=== PATIENT | female | born 1995 | race Two or more races ===

== ENCOUNTER 2017-12-16 21:05 | Emergency (ER) | payer MEDICAID ==
--- NOTE | 2017-12-16 21:28 | Emergency Department Record ---
History of Present Illness - General Chief complaint: ENT Stated complaint: SINUS CONGESTION,FEVER,HEADACHE Time Seen by Provider: 12/16/17 21:08 Source: Patient Mode of Arrival: Ambulatory Limitations: No limitations - History of Present Illness Initial comments: 22 yo female presents to ED for evaluation for evaluation of nasal congestion/ runny nose, sore throat symptoms, and non-productive cough symptoms. Patient reports fever of 100.4 at home, denies health problems at her baseline other than asthma. MD complaint: Sore throat Onset/Timin -: Days(s) Location: Throat Severity: Moderate Consistency: Constant Improves with: None Worsens with: None Associated Symptoms: Cough, Fever, Sore throat - Related Data Home Medications Medication Instructions Recorded Confirmed Last Taken No Home Med [NO HOME MEDS] 12/16/17 12/16/17 Unknown Allergies Allergy/AdvReac Type Severity Reaction Status Date / Time No Known Drug Allergies Allergy Verified 08/12/14 15:38 Review of Systems Constitutional: Reports: Fever. Denies: Chills, Malaise, Night sweats Eyes: Denies: Eye discharge, Eye pain ENT: Reports: Congestion, Throat pain. Denies: Ear pain, Epistaxis Respiratory: Reports: Cough Cardiovascular: Denies: Chest pain, Dyspnea on exertion, Edema, Palpitations Endocrine: Denies: Fatigue, Heat or cold intolerance Gastrointestinal: Denies: Abdominal pain, Nausea, Vomiting Genitourinary: Denies: Incontinence, Retention Musculoskeletal: Denies: Arthralgia, Back pain Skin: Denies: Bruising, Change in color Neurological: Denies: Abnormal gait, Confusion, Headache, Seizure Psychiatric: Denies: Anxiety Hematological/Lymphatic: Denies: Anemia, Blood Clots Past Medical History - SOCIAL HISTORY Smoking Status: Never smoker - RESPIRATORY Hx Asthma: Yes - CARDIOVASCULAR Hx Cardio Disorders: No - NEURO Hx Neuro Disorders: No - GI Hx GI Disorders: No - Hx Genitourinary Disorders: No - ENDOCRINE Hx Endocrine Disorders: No - MUSCULOSKELETAL Hx Musculoskeletal Disorders: No - PSYCH Hx Behavior Problems: Yes Hx Depression: Yes (bi-polar) - HEMATOLOGY/ONCOLOGY Hx Anemia: Yes Family Medical History Hx Cancer: Father, Mother, Grandparents Physical Exam - General General Appearance: Alert, Oriented x3, Cooperative, Mild distress Limitations: No limitations - Head Head exam: Atraumatic, Normocephalic, Normal inspection Head exam detail: negative: Abrasion, Contusion, Dang's sign, General tenderness, Hematoma, Laceration - Eye Eye exam: Normal appearance. negative: Conjunctival injection, Periorbital swelling, Periorbital tenderness, Scleral icterus - ENT Ear exam: negative: Auricular hematoma, Auricular trauma Nasal Exam: Discharge. negative: Active bleeding, Dried blood, Foreign body Mouth exam: negative: Drooling, Laceration, Muffled voice, Tongue elevation Throat exam: Tonsillar erythema. negative: Tonsillomegaly, R peritonsillar mass , L peritonsillar mass - Neck Neck exam: Normal inspection. negative: Meningismus, Tenderness - Respiratory Respiratory exam: Normal lung sounds bilaterally. negative: Rales, Respiratory distress, Rhonchi, Stridor - Cardiovascular Cardiovascular Exam: Regular rate, Normal rhythm, Normal heart sounds - GI/Abdominal GI/Abdominal exam: Soft. negative: Rebound, Rigid, Tenderness - Rectal Rectal exam: Deferred - exam: Deferred - Extremities Extremities exam: Normal inspection. negative: Pedal edema, Tenderness - Back Back exam: Denies: CVA tenderness (R), CVA tenderness (L) - Neurological Neurological exam: Alert, Normal gait, Oriented X3 - Psychiatric Psychiatric exam: Normal affect, Normal mood - Skin Skin exam: Normal color. negative: Abrasion Type of lesion: negative: abrasion Course - Reevaluation(s) Reevaluation #1: 12/16/17 21:34 Rapid strep: Negative Patient was updated on all results, symptoms appear c/w viral etiology. Patient was instructed to use a decongestant and Tylenol/Ibuprofen for her symptoms. Patient appears stable for discharge at this time. Medical Decision Making - Lab Data Lab Results 12/16/17 Range/Units 21:23 Group A Strep Screen Negative (NEGATIVE) Disposition Disposition: Discharge Clinical Impression: Viral URI Disposition: Home, Self-Care Condition: (2) Stable Instructions: Upper Respiratory Infection (ED) Additional Instructions: Return to ED if your symptoms worsen or if you have any concerns. Tylenol and Ibuprofen as directed. Follow-up with your family doctor in 3-5 days as directed. Forms: Patient Portal Access Time of Disposition: 21:28 Quality - Quality Measures Quality Measures: N/A - Blood Pressure Screening Does Patient Have Any of the Following: No Blood Pressure Classification: Pre-Hypertensive BP Reading Systolic Measurement: 123 Diastolic Measurement: 83 Screening for High Blood Pressure: < Pre-Hypertensive BP, F/U Documented > [ G8950] Pre-Hypertensive Follow-up Interventions: Referral to alternative/primary care provider.
== END 2017-12-16 21:36 | disposition home or self-care (01) ==
LOC: ER 21:05
DX: J06.9 Acute upper respiratory infection, unspecified (principal); J02.9 Acute pharyngitis, unspecified
CPT/HCPCS: 87880; 99282

== ENCOUNTER 2018-03-03 17:39 | Emergency (ER) | payer MEDICAID ==
[2018-03-03] MEDS: IPRATROPIUM/ALBUTEROL (0.5MG/3MG) NEB INH ONE (18:01)
[2018-03-03] MEDS: METHYLPREDNISOLONE PF 125MG/VIAL IM ONE (18:28)
--- NOTE | 2018-03-03 18:33 | Emergency Department Record ---
History of Present Illness - General Chief Complaint: Asthma Stated Complaint: SHYLA Time Seen by Provider: 03/03/18 17:52 Source: Patient Mode of Arrival: Ambulatory Limitations: No limitations - History of Present Illness Initial Comments: pt feels she cant get a good breath. she states this happens at night but is usually better in the morning but today it didnt go away. she denies wheezing. she has inhalers at home. she has no other symptoms. she vapes. she is not on bcp MD Complaint: Shortness of breath Onset/Timin -: Days(s) Asthma History: Childhood onset Severity: Mild Context: None known Associated Symptoms: None Treatments Prior to Arrival: Inhaled bronchodilator - Related Data Current Asthma Therapy: Inhaled bronchodilator Allergies Allergy/AdvReac Type Severity Reaction Status Date / Time No Known Drug Allergies Allergy Verified 08/12/14 15:38 Travel Screening - Travel/Exposure Within Last 30 Days Have you traveled within the last 30 days?: No Review of Systems Reviewed: No additional complaints except as noted below Constitutional: Reports: As per HPI. Denies: Chills, Fever, Malaise, Night sweats, Weakness, Weight change Eyes: Reports: As per HPI. Denies: Eye discharge, Eye pain, Photophobia, Vision change ENT: Reports: As per HPI. Denies: Congestion, Dental pain, Ear pain, Epistaxis , Hearing loss, Throat pain Respiratory: Reports: As per HPI, Dyspnea. Denies: Cough, Hemoptysis, Stridor, Wheezes Cardiovascular: Reports: As per HPI. Denies: Arrhythmia, Chest pain, Dyspnea on exertion, Edema, Murmurs, Orthopnea, Palpitations, Paroxysmal nocturnal dyspnea, Rheumatic Fever, Syncope Endocrine: Reports: As per HPI. Denies: Fatigue, Heat or cold intolerance, Polydipsia, Polyuria Gastrointestinal: Reports: As per HPI. Denies: Abdominal pain, Constipation, Diarrhea, Hematemesis, Hematochezia, Melena, Nausea, Vomiting Genitourinary: Reports: As per HPI. Denies: Abnormal menses, Discharge, Dyspareunia, Dysuria, Frequency, Hematuria, Incontinence, Retention, Urgency Musculoskeletal: Reports: As per HPI. Denies: Arthralgia, Back pain, Gout, Joint swelling, Myalgia, Neck pain Skin: Reports: As per HPI. Denies: Bruising, Change in color, Change in hair/ nails, Lesions, Pruritus, Rash Neurological: Reports: As per HPI. Denies: Abnormal gait, Confusion, Headache, Numbness, Paresthesias, Seizure, Tingling, Tremors, Vertigo, Weakness Psychiatric: Reports: As per HPI. Denies: Anxiety, Auditory hallucinations, Depression, Homicidal thoughts, Suicidal thoughts, Visual hallucinations Hematological/Lymphatic: Reports: As per HPI. Denies: Anemia, Blood Clots, Easy bleeding, Easy bruising, Swollen glands Past Medical History - SOCIAL HISTORY Smoking Status: Never smoker Alcohol Use: None Drug Use: None Drug Use Comment:: pt vapes - RESPIRATORY Hx Respiratory Disorders: Yes Hx Asthma: Yes - CARDIOVASCULAR Hx Cardio Disorders: No - NEURO Hx Neuro Disorders: No - GI Hx GI Disorders: No - Hx Genitourinary Disorders: No - ENDOCRINE Hx Endocrine Disorders: No - MUSCULOSKELETAL Hx Musculoskeletal Disorders: No - PSYCH Hx Psych Problems: Yes Hx Behavior Problems: Yes Hx Depression: Yes (bi-polar) - HEMATOLOGY/ONCOLOGY Hx Hematology/Oncology Disorders: Yes Hx Anemia: Yes Family Medical History Any Significant Family History?: Yes Hx Cancer: Father, Mother, Grandparents Physical Exam - General General Appearance: Alert, Oriented x3, Cooperative, Mild distress - Head Head exam: Normal inspection - Eye Eye exam: Normal appearance, PERRL, EOMI Pupils: Normal accommodation - ENT ENT exam: Normal exam, Mucous membranes moist, Normal external ear exam, Normal orophraynx Ear exam: Normal external inspection. negative: External canal tenderness Nasal Exam: Normal inspection. negative: Discharge, Sinus tenderness Mouth exam: Normal external inspection, Tongue normal Teeth exam: Normal inspection. negative: Dental caries Throat exam: Normal inspection. negative: Tonsillar erythema, Tonsillar exudate - Neck Neck exam: Normal inspection, Full ROM. negative: Tenderness - Respiratory Respiratory exam: Normal lung sounds bilaterally. negative: Respiratory distress - Cardiovascular Cardiovascular Exam: Regular rate, Normal rhythm, Normal heart sounds - GI/Abdominal GI/Abdominal exam: Soft, Normal bowel sounds. negative: Tenderness - Rectal Rectal exam: Deferred - exam: Deferred - Extremities Extremities exam: Normal inspection, Full ROM, Normal capillary refill. negative: Tenderness - Back Back exam: Reports: Normal inspection, Full ROM. Denies: Muscle spasm, Rash noted, Tenderness - Neurological Neurological exam: Alert, CN II-XII intact, Normal gait, Oriented X3 - Psychiatric Psychiatric exam: Normal affect, Normal mood - Skin Skin exam: Dry, Intact, Normal color, Warm Course Vital Signs 03/03/18 03/03/18 17:45 18:02 Temperature 98.1 F Pulse Rate 65 76 Respiratory 22 18 Rate Blood Pressure 114/73 Pulse Ox 100 100 - Reevaluation(s) Reevaluation #1: 03/03/18 18:49 pt feels better Disposition Disposition: Discharge Clinical Impression: Shortness of breath Disposition: Home, Self-Care Condition: (1) Good Instructions: Shortness of Breath (ED), Asthma (ED) Additional Instructions: follow up with family doctor. return sooner if worse. stop vaping Forms: Patient Portal Access Quality - Quality Measures Quality Measures: N/A - Blood Pressure Screening Does Patient Have Any of the Following: No Blood Pressure Classification: Normal BP Reading Systolic Measurement: 114 Diastolic Measurement: 73 Screening for High Blood Pressure: < Normal BP, F/U Not Required > [G8783]
--- NOTE | 2018-03-05 14:55 | RADIOLOGY REPORT ---
EXAM: CHEST HISTORY: DIFFICULTY BREATHING, SHORTNESS OF BREATH. TECHNIQUE: Two views of the chest were obtained. Comparison: None. FINDINGS: The heart is not enlarged. No mediastinal mass. No acute infiltrate or vascular congestion identified. IMPRESSION: UNREMARKABLE CHEST EXAMINATION. JOB NUMBER: [id number] MTDD
== END 2018-03-03 19:04 | disposition home or self-care (01) ==
LOC: ER 17:39
DX: R06.02 Shortness of breath (principal); J45.909 Unspecified asthma, uncomplicated; F31.9 Bipolar disorder, unspecified
CPT/HCPCS: 71046; 94640; 96372; 99283; J2930

== ENCOUNTER 2019-06-04 16:51 | Emergency (ER) | payer MEDICAID ==
[2019-06-04] MEDS ORDERED: ALBUTEROL SULFATE (0.083%) 2.5 MG/3 ML NEB INH ONE (17:11)
[2019-06-04] MEDS ORDERED: PREDNISONE 20 MG TAB PO ONE (17:12)
--- NOTE | 2019-06-04 17:24 | Emergency Department Record ---
History of Present Illness - General Chief Complaint: Cough Stated Complaint: COUGH Time Seen by Provider: 06/04/19 16:58 Source: Patient Mode of Arrival: Ambulatory Limitations: No limitations - History of Present Illness Initial Comments: The patient is here due to a dry cough for 5 days with mild SOB. She denies any fever, CP, sputum production, or back pain but does feel mildly SOB at times. The patient does have a hx of Asthma and is out of her inhaller. She has never needed to be admitted for asthma as an adult. Also the patient does have a faint itchy rash all over her arms and legs. MD Complaint: Cough Onset/Timin -: Days(s) - Related Data Previous Rx's Medication Instructions Recorded Albuterol Sulfate [Proair Hfa] 2 puff IH QID PRN #1 inhaler 06/04/19 Prednisone [Prednisone 20Mg] 40 mg PO DAILY #8 tab 06/04/19 Allergies Allergy/AdvReac Type Severity Reaction Status Date / Time No Known Drug Allergies Allergy Verified 08/12/14 15:38 Travel Screening - Travel/Exposure Within Last 30 Days Have you traveled within the last 30 days?: No Review of Systems Constitutional: Denies: Chills, Fever Eyes: Denies: Eye discharge ENT: Denies: Congestion Respiratory: Denies: Cough, Dyspnea Past Medical History - SOCIAL HISTORY Smoking Status: Never smoker - RESPIRATORY Hx Respiratory Disorders: Yes Hx Asthma: Yes - CARDIOVASCULAR Hx Cardio Disorders: No - NEURO Hx Neuro Disorders: No - GI Hx GI Disorders: No - Hx Genitourinary Disorders: No - ENDOCRINE Hx Endocrine Disorders: No - MUSCULOSKELETAL Hx Musculoskeletal Disorders: No - PSYCH Hx Psych Problems: Yes Hx Behavior Problems: Yes Hx Depression: Yes (bi-polar) - HEMATOLOGY/ONCOLOGY Hx Hematology/Oncology Disorders: Yes Hx Anemia: Yes Family Medical History Any Significant Family History?: Yes Hx Cancer: Father, Mother, Grandparents Physical Exam - General General Appearance: Alert, Oriented x3, Cooperative, No acute distress - Head Head exam: Atraumatic, Normocephalic, Normal inspection - Eye Eye exam: Normal appearance, PERRL, EOMI - ENT ENT exam: TM's normal bilaterally Throat exam: Normal inspection. negative: Tonsillar erythema, Tonsillar exudate - Neck Neck exam: Normal inspection, Full ROM. negative: Tenderness - Respiratory Respiratory exam: Normal lung sounds bilaterally. negative: Rales, Respiratory distress, Rhonchi, Stridor, Wheezes - Cardiovascular Cardiovascular Exam: Regular rate, Normal rhythm, Normal heart sounds - GI/Abdominal GI/Abdominal exam: Soft, Normal bowel sounds. negative: Tenderness - Extremities Extremities exam: Normal inspection, Full ROM, Normal capillary refill. negative: Tenderness - Neurological Neurological exam: Alert. negative: Motor sensory deficit - Skin Skin exam: Urticaria (There is a faint blanching erythematous urticarial rash to the arms and legs.) Course Vital Signs 06/04/19 06/04/19 17:02 17:19 Temperature 98.9 F Pulse Rate 78 99 H Respiratory 20 20 Rate Blood Pressure 128/96 Pulse Ox 98 98 - Reevaluation(s) Reevaluation #1: The patient is feeling better at this time. She denies any pain or SOB and her cough is improved. I did discuss the neg xray and the fact I do believe she has a viral URI which is triggering her asthms. She is to use an OTC cough medicine along with a new inhaller and oral Prednisone. She is to return to the ER for any worsening symptoms. 06/04/19 18:18 Medical Decision Making - Data Complexity MDM Data: X-Ray Ordered and/or Reviewed - Radiology Data Radiology results: Report reviewed (CXR: Neg.) Disposition Disposition: Discharge Clinical Impression: URI, acute Disposition: Home, Self-Care Condition: (2) Stable Instructions: Cold Symptoms (ED) Additional Instructions: Please use an OTC cough and cold medicine along with your new inhaler an Prednisone. Please see your doctor in 3 days if not better and return to the ER for any worsening symptoms. Prescriptions: Prednisone [Prednisone 20Mg] 40 mg PO DAILY #8 tab Albuterol Sulfate [Proair Hfa] 2 puff IH QID PRN #1 inhaler PRN Reason: Cough And Difficulty Breathing Forms: Patient Portal Access Time of Disposition: 18:20 Quality - Quality Measures Quality Measures: N/A - Blood Pressure Screening View Details: Yes Does Patient Have Any of the Following: No Blood Pressure Classification: Hypertensive Reading Systolic Measurement: 128 Diastolic Measurement: 96 Screening for High Blood Pressure: < First Hypertensive BP, F/U Documented > [G8950] First Hypertensive Follow-up Interventions: Referral to alternative/primary care provider.
--- NOTE | 2019-06-04 18:12 | RADIOLOGY REPORT ---
EXAMINATION: CHEST 2 VIEWS EXAM DATE: 06/04/2019 5:58 PM TECHNIQUE: Frontal and lateral views of the chest INDICATION: cough COMPARISON: None FINDINGS: The cardiomediastinal silhouette is normal. The lungs are clear. No evidence of pneumonia or pulmonary edema. No pneumothorax or pleural effusion. The bones are unremarkable. IMPRESSION: No acute pulmonary process. Dictated by: Villa Herron MD on 06/04/2019 6:10 PM. .
== END 2019-06-04 18:30 | disposition home or self-care (01) ==
LOC: ER 16:51
DX: J06.9 Acute upper respiratory infection, unspecified (principal); R05 Cough; L50.9 Urticaria, unspecified
CPT/HCPCS: 99283 ×2; 71046; 94640; J7512; J7613

== ENCOUNTER 2019-06-11 11:25 | Emergency (ER) | payer MEDICAID ==
[2019-06-11] MEDS ORDERED: IPRATROPIUM/ALBUTEROL (0.5MG/3MG) NEB INH ONE (11:56)
[2019-06-11] MEDS ORDERED: METHYLPREDNISOLONE PF 125MG/VIAL IM ONE (11:56)
--- NOTE | 2019-06-11 12:53 | RADIOLOGY REPORT ---
EXAMINATION: Two View Chest Radiographs EXAM DATE: 06/11/2019 12:44 PM TECHNIQUE: Frontal and lateral views INDICATION: sob COMPARISON: 06/04/2019 ENCOUNTER: Not applicable FINDINGS: The heart, mediastinum, and pulmonary vasculature are normal. No lung consolidation or pleural effu sions are present. IMPRESSION: No acute abnormalities in the chest. Dictated by: Fernanda Padilla MD on 06/11/2019 12:50 PM. .
--- NOTE | 2019-06-11 13:28 | Emergency Department Record ---
History of Present Illness - General Chief Complaint: Cough Stated Complaint: COUGHING/SHORT OF BREATH Time Seen by Provider: 06/11/19 11:48 Source: Patient Mode of Arrival: Ambulatory Limitations: No limitations - History of Present Illness Initial Comments: pt states she is sob intermittently and has a nonproductive cough. no fevers. she had the same earlier this month and had a 4 day course of steroids and gradually got better and is now worse. she has been wheezing and feels her in [facility] is not working MD Complaint: Cough, Fever Onset/Timin -: Week(s) Consistency: Constant Associated Symptoms: Cough, Shortness of breath - Related Data Previous Rx's Medication Instructions Recorded Albuterol Sulfate [Proair Hfa] 2 puff IH QID PRN #1 inhaler 06/04/19 Allergies Allergy/AdvReac Type Severity Reaction Status Date / Time No Known Drug Allergies Allergy Verified 08/12/14 15:38 Travel Screening - Travel/Exposure Within Last 30 Days Have you traveled within the last 30 days?: No Review of Systems Reviewed: No additional complaints except as noted below Constitutional: Reports: As per HPI. Denies: Chills, Fever, Malaise, Night sweats, Weakness, Weight change Eyes: Reports: As per HPI. Denies: Eye discharge, Eye pain, Photophobia, Vision change ENT: Reports: As per HPI. Denies: Congestion, Dental pain, Ear pain, Epistaxis, Hearing loss, Throat pain Respiratory: Reports: As per HPI. Denies: Cough, Dyspnea, Hemoptysis, Stridor, Wheezes Cardiovascular: Reports: As per HPI. Denies: Arrhythmia, Chest pain, Dyspnea on exertion, Edema, Murmurs, Orthopnea, Palpitations, Paroxysmal nocturnal dyspnea, Rheumatic Fever, Syncope Endocrine: Reports: As per HPI. Denies: Fatigue, Heat or cold intolerance, Polydipsia, Polyuria Gastrointestinal: Reports: As per HPI. Denies: Abdominal pain, Constipation, Diarrhea, Hematemesis, Hematochezia, Melena, Nausea, Vomiting Genitourinary: Reports: As per HPI. Denies: Abnormal menses, Discharge, Dyspareunia, Dysuria, Frequency, Hematuria, Incontinence, Retention, Urgency Musculoskeletal: Reports: As per HPI. Denies: Arthralgia, Back pain, Gout, Joint swelling, Myalgia, Neck pain Skin: Reports: As per HPI. Denies: Bruising, Change in color, Change in hair/nails, Lesions, Pruritus, Rash Neurological: Reports: As per HPI. Denies: Abnormal gait, Confusion, Headache, Numbness, Paresthesias, Seizure, Tingling, Tremors, Vertigo, Weakness Psychiatric: Reports: As per HPI. Denies: Anxiety, Auditory hallucinations, Depression, Homicidal thoughts, Suicidal thoughts, Visual hallucinations Hematological/Lymphatic: Reports: As per HPI. Denies: Anemia, Blood Clots, Easy bleeding, Easy bruising, Swollen glands Past Medical History - SOCIAL HISTORY Smoking Status: Never smoker - RESPIRATORY Hx Respiratory Disorders: Yes Hx Asthma: Yes - CARDIOVASCULAR Hx Cardio Disorders: No - NEURO Hx Neuro Disorders: No - GI Hx GI Disorders: No - Hx Genitourinary Disorders: No - ENDOCRINE Hx Endocrine Disorders: No - MUSCULOSKELETAL Hx Musculoskeletal Disorders: No - PSYCH Hx Psych Problems: Yes Hx Behavior Problems: Yes Hx Depression: Yes (bi-polar) - HEMATOLOGY/ONCOLOGY Hx Hematology/Oncology Disorders: Yes Hx Anemia: Yes Family Medical History Any Significant Family History?: Yes Hx Cancer: Father, Mother, Grandparents Physical Exam - General General Appearance: Alert, Oriented x3, Cooperative, Mild distress - Head Head exam: Normal inspection - Eye Eye exam: Normal appearance, PERRL, EOMI Pupils: Normal accommodation - ENT ENT exam: Normal exam, Mucous membranes moist, Normal external ear exam, Normal orophraynx Ear exam: Normal external inspection. negative: External canal tenderness Nasal Exam: Normal inspection. negative: Discharge, Sinus tenderness Mouth exam: Normal external inspection, Tongue normal Teeth exam: Normal inspection. negative: Dental caries Throat exam: Normal inspection. negative: Tonsillar erythema, Tonsillar exudate - Neck Neck exam: Normal inspection, Full ROM. negative: Tenderness - Respiratory Respiratory exam: Wheezes. negative: Respiratory distress - Cardiovascular Cardiovascular Exam: Regular rate, Normal rhythm, Normal heart sounds - GI/Abdominal GI/Abdominal exam: Soft, Normal bowel sounds. negative: Tenderness - Rectal Rectal exam: Deferred - exam: Deferred - Extremities Extremities exam: Normal inspection, Full ROM, Normal capillary refill. negative: Tenderness - Back Back exam: Reports: Normal inspection, Full ROM. Denies: Muscle spasm, Rash noted, Tenderness - Neurological Neurological exam: Alert, CN II-XII intact, Normal gait, Oriented X3 - Psychiatric Psychiatric exam: Normal affect, Normal mood - Skin Skin exam: Dry, Intact, Normal color, Warm Course Vital Signs 06/11/19 06/11/19 11:30 12:08 Temperature 97.7 F Pulse Rate 87 76 Respiratory 20 18 Rate Blood Pressure 125/88 Pulse Ox 98 99 - Reevaluation(s) Reevaluation #1: 06/11/19 13:35 pt feels better Disposition Disposition: Discharge Clinical Impression: Acute exacerbation of extrinsic asthma Disposition: Home, Self-Care Condition: (1) Good Instructions: Asthma (ED) Additional Instructions: follow up with family doctor. return sooner if worse. Forms: Patient Portal Access Quality - Quality Measures Quality Measures: N/A - Blood Pressure Screening Does Patient Have Any of the Following: No Blood Pressure Classification: Pre-Hypertensive BP Reading Systolic Measurement: 125 Diastolic Measurement: 88 Screening for High Blood Pressure: < Pre-Hypertensive BP, F/U Documented > [G8950] Pre-Hypertensive Follow-up Interventions: Follow-up with rescreen every year.
[2019-06-11] MEDS ORDERED: ONDANSETRON 4 MG ODT TABLET SL ONE (13:34)
== END 2019-06-11 13:59 | disposition home or self-care (01) ==
LOC: ER 11:25
DX: J45.901 Unspecified asthma with (acute) exacerbation (principal)
CPT/HCPCS: 71046; 94640; 96372; 99284; J2930